=== PATIENT | male | born 1960 | race Caucasian/White ===

== ENCOUNTER 2019-08-02 05:37 | Outpatient (CLI) | payer BC ==
[~2019-08-02] VITALS: Ht 177.8 cm; Wt 84.5 kg
[2019-08-02] MEDS ORDERED: LOSA100T57 PO (10:07)
[2019-08-02] MEDS ORDERED: HYDR12.56 PO (10:07)
[2019-08-02] MEDS ORDERED: MULT-1056 PO (10:07)
[2019-08-02] MEDS ORDERED: OMEP20TA7 PO (10:11)
[2019-08-02] MEDS ORDERED: LORA-877 PO (10:11)
[2019-08-02] MEDS ORDERED: NFBIOT1000 PO (10:11)
[2019-08-02] MEDS ORDERED: FLUT9.9S NSEACH (10:11)
== END 2019-08-02 10:12 | disposition home or self-care (01) ==
LOC: PREOP 05:37
PROVIDERS: ATTEND Surgery
DX: Z01.818 Encounter for other preprocedural examination (principal)

== ENCOUNTER 2019-08-04 12:11 | Day surgery (SDC) | payer BC ==
--- NOTE | 2019-08-03 13:41 | HISTORY AND PHYSICAL ---
DATE OF SERVICE: DATE OF PROCEDURE: 08/04/2019. ATTENDING PHYSICIAN: Dr. Lyon. HISTORY OF PRESENT ILLNESS: The patient is a 58-year-old male, who was referred over to us, who is in need of a screening colonoscopy. The patient reports his last colonoscopy was 20 years ago, which he reports was normal. He reports, since that time, he has not had any blood in his stool. He denies any family history of any colon cancer. He denies any diarrhea, constipation or any abdominal pain. PAST MEDICAL HISTORY: Hypertension, gastroesophageal reflux disease. PAST SURGICAL HISTORY: Vasectomy in 1989. ALLERGIES: SULFA, PENICILLIN. MEDICATIONS: Losartan, hydrochlorothiazide, multivitamin, biotin, aspirin 81 mg, Claritin-D and omeprazole. SOCIAL HISTORY: Negative for smoke or for alcohol. FAMILY HISTORY: Brother hypertension. PHYSICAL EXAMINATION: VITAL SIGNS: Blood pressure is 122/60. Current weight is 189.6 at 5 feet 10. REVIEW OF SYSTEMS GENERAL: This is a well-nourished male in no acute distress. HEENT: He is not experiencing any shortness of breath or difficulty breathing. CARDIOVASCULAR: No chest pain, palpitations or diaphoresis. GASTROINTESTINAL: No nausea, vomiting or abdominal pain. No diarrhea or constipation. No red blood per rectum. No dark tarry stools. REVIEW OF SYSTEMS: No fever or chills. No recent inadvertent weight loss. All other review of systems negative. PHYSICAL EXAMINATION: CHEST: Clear. LUNGS: Good breath sounds bilaterally. HEART: Regular, no murmurs. EXTREMITIES: No lower extremity edema. Negative Homans sign. HEENT: No scleral icterus. No cervical adenopathy. ABDOMEN: Soft, nontender and nondistended. SKIN: Warm, dry and pink. NEUROLOGIC: Awake, alert, oriented x3. ASSESSMENT AND PLAN: This is a 58-year-old male, who is in need of a screening colonoscopy. The risks and benefits of the procedure as well as the procedure and home care instructions were explained to the patient. The patient verbalized understanding of instructions and agrees to proceed as planned. At this time, we will proceed with scheduling the patient for a screening colonoscopy. Job ID: [id number] DocumentID: [id number] Dictated Date: 08/01/2019 10:01:18 Automobile Service Station Mechanic Date: 08/01/2019 10:29:32 Dictated By: TOBIAS REGALADO APRN
[~2019-08-04] VITALS: Ht 177.8 cm; Wt 84.5 kg
[2019-08-04] VITALS (13 sets, daily range): BP systolic 95–139; BP diastolic 61–89
[~2019-08-04 12:11] MED LIST: FLUT9.9S NSEACH; HYDR12.56 PO; LORA-877 PO; LOSA100T57 PO; MULT-1056 PO; NFBIOT1000 PO; OMEP20TA7 PO
[2019-08-04] MEDS ORDERED: NS IV 500 ML 500 ML IV PRN (12:23)
[2019-08-04] MEDS ORDERED: NS IV 500 ML 500 ML ONE (12:26)
[2019-08-04] MEDS ORDERED: LIDOCAINE JELLY 2% 6 ML SYRINGE MM PRN (12:30)
[2019-08-04] MEDS ORDERED: fentaNYL INJECTION 100 MCG/2 ML AMP IVP ONE (12:30)
--- NOTE | 2019-08-04 12:31 | Conscious Sedation/ASA ---
Conscious Sedation Pre-Proced Time 12:30 ASA Score 2 For ASA 3 and 4: Consider anesthesia and medical clearance. Also, for patients with a history of failed moderate sedation consider anesthesia. Airway Lungs Heart ASA score ASA 1: a normal healthy patient ASA 2: a patient with a mild systemic disease (mid diabetes, controlled hypertension, obesity ASA 3: a patient with a severe systemic disease that limits activity (angina, COPD, prior Myocardial infarction) ASA 4: a patient with an incapacitating disease that is a constant threat to life (CHF, renal failure) ASA 5: a moribund patient not expected to survive 24 hrs. (ruptured aneurysm) ASA 6: a declared brain- patient whose organs are being harvested. For emergent operations, add the letter E after the classification Mallampati Classification Grade 2 Sedation Plan Analgesia, Amnesia, Plan communicated to team members, Discussed options with patient/fam, Discussed risks with patient/fam The patient is an appropriate candidate to undergo the planned procedure, sedation, and anesthesia. The patient immediately re-assessed prior to indication. RADHA MILTON MD Aug 04, 2019 12:31
--- NOTE | 2019-08-04 12:32 | Progress Note-Pre Operative ---
Pre-Operative Progress Note H&P Reviewed The H&P was reviewed, patient examined and no changes noted. Date Seen by Provider: Aug 04, 2019 Time Seen by Provider: 12:30 Date H&P Reviewed: Aug 04, 2019 Time H&P Reviewed: 12:30 Pre-Operative Diagnosis: screening RADHA Pond MD Aug 04, 2019 12:32
--- NOTE | 2019-08-04 12:33 | Discharge Inst-Surgical ---
D/C Lap Instructions-KARINE Follow Up Activity as tolerated High Fiber Diet 25g or more per day Avoid Alcohol, Caffeine, Spicy Keyser and Acid foods. Drink 64 fluid oz or more of fluids per day. Symptoms to Report: Fever over 101 degree F, Nausea/Vomiting If any problems/questions: Contact your physician or go to Emergency Room RADHA MILTON MD Aug 04, 2019 12:33
[2019-08-04] MEDS ORDERED: ONDANSETRON 4 MG/2 ML (SDV) Z0FRAN IVP PRN (12:45)
[2019-08-04] MEDS ORDERED: morphine INJ 10 MG/ML 1ML (SYR OR VIAL) IVP PRN ×2 (12:45)
[2019-08-04] MEDS ORDERED: HYDROcodone/APAP 5 MG/325 MG (LORTAB) TAB PO PRN (12:45)
[2019-08-04] MEDS ORDERED: ACETAMINOPHEN 325 MG TABLET PO PRN (12:45)
[2019-08-04] MEDS ORDERED: fentaNYL INJECTION 100 MCG/2 ML AMP ONE ×2 (13:14→13:31)
[2019-08-04] MEDS ORDERED: LIDOCAINE JELLY 2% 6 ML SYRINGE ONE (13:14)
[2019-08-04] MEDS ORDERED: MIDAZOLAM 5 MG/5 ML (VERSED) VIAL ONE ×2 (13:14→13:31)
[2019-08-04] MEDS: MIDAZOLAM 5 MG/5 ML (VERSED) VIAL IV PRN ×5 (13:24→13:42)
--- NOTE | 2019-08-04 14:09 | Progress Note-Post Operative ---
Post-Operative Progess Note Surgeon (s)/Senior Accounting Clerk (s) Surgeon RADHA MILTON MD Senior Accounting Clerk: none Pre-Operative Diagnosis screening colo Post-Operative Diagnosis mild chronic stage 2 ext and int hemorrhoids. Procedure & Operative Findings Date of Procedure 08/04/19 Procedure Performed/Findings colonoscopy. Anesthesia Type cs Estimated Blood Loss Estimated blood loss (mL): minimal Specimens/Packing Specimens Removed none RADHA MILTON MD Aug 04, 2019 14:09
--- NOTE | 2019-08-04 18:24 | OPERATIVE REPORT ---
DATE OF SERVICE: 08/04/2019 ATTENDING PRIMARY CARE PHYSICIAN: Dr. Charbel yLon. PREOPERATIVE DIAGNOSIS: Screening colonoscopy. POSTOPERATIVE DIAGNOSIS: Mild chronic stage II external and internal hemorrhoids. PROCEDURE: Colonoscopy. SURGEON: Radha Milton MD ANESTHESIA: Conscious sedation. ESTIMATED BLOOD LOSS: Minimal. FINDINGS: Same as postoperative diagnosis. DISPOSITION: The patient tolerated the procedure well. INDICATIONS: The patient is a 58-year-old male in need of a screening colonoscopy. He states that he did have a colonoscopy approximately 25 years ago; however, this was due to rectal bleeding. However, he underwent a colonoscopy and believes that to be normal. He states that he is otherwise doing well, does not report any major issues with diarrhea nor constipation as well as no red blood per rectum nor any dark tarry stools. He also does not report any family history of colon cancer. DESCRIPTION OF PROCEDURE: The patient was brought to the endoscopy suite, laid in the left lateral decubitus position. After adequate IV pain and sedative medications and conscious sedation anesthesia, a digital rectal examination was performed. Mild chronic stage II external and internal hemorrhoids were identified, which were not actively edematous nor inflamed and no bleeding. Normal sphincter tone was felt and there were no palpable masses. Prostate gland was palpable and appeared normal. The endoscope was then intubated to the anus, rectum and gently insufflated. The endoscope was then advanced to the valves of Patterson of the rectum with no polyps or any neoplasms identified. We then proceeded through the sigmoid colon where no diverticulosis identified. The endoscope was then advanced to the remainder of the descending, transverse and ascending colon of the cecum. These segments were normal. There were no polyps or any neoplasms identified throughout the colon or rectum. The endoscope was then slowly withdrawn while taking a second look and suctioning of residual air with no additional findings. The patient tolerated the procedure well. We will recommend conservative medical therapy with a high-fiber diet with 30 grams of fiber daily as well as significant amounts of water to promote soft stools on a daily basis. He does not need another colonoscopy for another 10 years. Job ID: [id number] DocumentID: [id number] Dictated Date: 08/04/2019 13:57:05 Road Supervisor Of Engines Date: 08/04/2019 18:23:08 Dictated By: RADHA MILTON MD
== END 2019-08-04 14:45 | disposition home or self-care (01) ==
LOC: ENDO 12:11
PROVIDERS: ATTEND Surgery
DX: Z12.11 Encounter for screening for malignant neoplasm of colon (principal); K64.1 Second degree hemorrhoids; K64.8 Other hemorrhoids; I10 Essential (primary) hypertension; K21.9 Gastro-esophageal reflux disease without esophagitis; Z88.0 Allergy status to penicillin; Z88.2 Allergy status to sulfonamides; Z98.52 Vasectomy status; Z79.82 Long term (current) use of aspirin; Z79.899 Other long term (current) drug therapy; Z82.49 Family history of ischemic heart disease and other diseases of the circulatory system

== ENCOUNTER → 2020-09-20 | Outpatient (CLI) | payer BC ==
--- NOTE | 2020-09-20 10:39 | Diagnostic Imaging Report ---
INDICATION: Right hip pain x2-3 weeks, no known injury TECHNIQUE: 2 views of the right hip. CORRELATION STUDY: None FINDINGS: Images of the hip demonstrate no evidence for acute fracture. There is a small well-corticated bone fragment off the anterior spine likely of a remote injury. Alignment is anatomic. The femoral head acetabular relationship is unremarkable. The bony trabecular pattern is intact. IMPRESSION: 1. Unremarkable examination of the right hip. Dictated by: Dictated on workstation # [id number]
--- NOTE | 2020-09-20 11:27 | Diagnostic Imaging Report ---
INDICATION: RIGHT HIP AND LOW BACK PAIN TECHNIQUE: AP, Lateral and Spot imaging of the lumbar spine CORRELATION STUDY: None. FINDINGS: Sacralization at L5. Trace anterolisthesis of L4 on L5. Alignment is otherwise relatively anatomic. Lumbar vertebral body heights are maintained. Mild endplate lipping at particularly L3, L4, and L5 levels. Multilevel areas of various disc space narrowing, most pronounced at the L5-S1 level. Hypertrophic facet arthropathy at L4-L5 and L5-S1. Mild sclerosis of the left sacroiliac joint. IMPRESSION: No radiographic evidence for acute bony abnormality of the lumbar spine. Degenerative changes of the lower lumbar spine with hypertrophic facet arthropathy. Dictated by: Dictated on workstation # [id number]
== END ==
LOC: RAD 09:43
PROVIDERS: ATTEND Family Medicine
DX: M47.816 Spondylosis without myelopathy or radiculopathy, lumbar region (principal)
CPT/HCPCS: 72100; 73502

== ENCOUNTER → 2022-07-28 | Outpatient (CLI) | payer BC ==
[~2022-07-28] MED LIST changes: +OMEP20TA56 PO; -OMEP20TA7 PO
--- NOTE | 2022-07-28 21:12 | Diagnostic Imaging Report ---
INDICATION: Breath sounds, difficulty breathing. PA and lateral chest obtained at 02:43 p.m. compared 05/29/2015. FINDINGS: Heart and mediastinal silhouette are normal in appearance. The lungs are clear. There is no pneumothorax or pleural fluid. IMPRESSION: Negative chest. Dictated by: Dictated on workstation # [id number]
== END ==
LOC: RAD 14:22
PROVIDERS: ATTEND Family Medicine
DX: R06.2 Wheezing (principal)
CPT/HCPCS: 71046